=== PATIENT | female | born 1990 | race Caucasian/White ===

== ENCOUNTER 2017-07-25 03:51 | Emergency (ER) | payer OTHER ==
[~2017-07-25] VITALS: Wt 48.1 kg
[~2017-07-25 03:51] MED LIST: AMOXICILLIN500 MG PO; ANAPROX DS550 MG PO; BACTRIM DS 8001 TA1 PO; BENADRYL50 MG PO; CLARITIN10 MG PO; COGENTIN2 MG PO; COMPAZINE10 MG PO; MOTRIN600 MG PO; NKHM; PENICILLIN250 MG PO; PEPCID20 MG PO; PHENERGAN25 M1 PO; PRENATAL1 TA3 PO; PYRIDIUM200 MG PO; VICODIN 5/500 505 MG PO; ZITHROMAX Z PA250 MG PO; ZOFRAN ODT4 MG PO; ZOFRAN ODT4 MG SL
[2017-07-25 04:14] LABS: BILIRUBIN NEGATIVE (NEGATIVE); BLOOD NEGATIVE (NEGATIVE); CLARITY SL CLOUDY (CLEAR); COLOR YELLOW (YELLOW); GLUCOSE NEGATIVE (NEGATIVE); KETONE NEGATIVE (NEGATIVE); LEUKO ESTERASE 1+ (NEGATIVE); NITRITE NEGATIVE (NEGATIVE); SPECIFIC GRAVITY >= 1.030 (1.005-1.030); UROBILINOGEN 0.2 E.U./dl (0.2-1.0)
[2017-07-25 04:26] LABS: BACTERIA 1+; EPITHELIAL CELLS TNTC
[2017-07-25 04:45] LABS: BASO % 0.3 % (0.0-1.0); EOS # 0.1 10*3/uL (0.0-0.4); HEMATOCRIT 38.9 % (37.0-47.0); HEMOGLOBIN 13.3 g/dl (12.0-16.0); LYMPH # 1.3 10*3/uL (1.3-4.4); LYMPH % 9.8 % (27.0-41.0); MEAN CELL VOLUME 85.5 fl (81.0-99.0); MEAN CORPUSCULAR HGB 29.2 pg (27.0-31.0); MEAN CORPUSCULAR HGB CONC 34.2 g/dl (33.0-37.0); MEAN PLATELET VOLUME 9.4 fl (9.6-12.3); MONO # 0.6 10*3/uL (0.1-1.0); MONO % 4.7 % (3.0-9.0); NEUT # 11.3 10*3/uL (2.3-7.9); PLATELET COUNT AUTOMATED 282 10*3/uL (130-400); RED BLOOD COUNT 4.55 10*6/uL (4.10-5.10); RED CELL DISTRI WIDTH 12.9 % (0-14.5); WHITE BLOOD COUNT 13.4 10*3/uL (4.8-10.8)
[2017-07-25 05:08] LABS: ALBUMIN 3.8 gm/dl (3.1-4.5); ALKALINE PHOSPHATASE 53 U/L (45-117); BUN 17 mg/dl (7-24); CHLORIDE 106 mmol/L (98-107); CREATININE 0.97 mg/dL (0.55-1.02); LIPASE 134 U/L (73-393); POTASSIUM 3.8 mmol/L (3.5-5.1); SGOT/AST 16 IU/L (3-35); SGPT/ALT 18 U/L (12-78); SODIUM 139 mmol/L (136-145)
[2017-07-25] MEDS ORDERED: LOMOTIL 2.5-0.1 EACH PO (06:29)
[2017-07-25] MEDS ORDERED: ZOFRAN ODT4 MG SL (06:29)
== END 2017-07-25 06:44 | disposition home or self-care (01) ==
LOC: ED 03:51
PROVIDERS: Emergency Medicine Emergency Medical Services
DX: N39.0 Urinary tract infection, site not specified (principal); K52.9 Noninfective gastroenteritis and colitis, unspecified; F17.200 Nicotine dependence, unspecified, uncomplicated; Z88.8 Allergy status to other drugs, medicaments and biological substances

== ENCOUNTER 2018-11-11 02:39 | Emergency (ER) | payer SELFPAY ==
[~2018-11-11] VITALS: Wt 47.6 kg
[~2018-11-11 02:39] MED LIST changes: +LOMOTIL 2.5-0.1 EACH PO
[2018-11-11] MEDS ORDERED: KEFLEX500 M1 PO (04:01)
[2018-11-11] MEDS ORDERED: ULTRAM50 MG PO (04:02)
== END 2018-11-11 04:19 | disposition home or self-care (01) ==
LOC: ED 02:39
DX: L03.011 Cellulitis of right finger (principal); Z88.8 Allergy status to other drugs, medicaments and biological substances

== ENCOUNTER 2022-03-04 05:18 | Emergency (ER) | payer SELFPAY ==
[~2022-03-04] VITALS: Ht 162.5 cm; Wt 54.4 kg
[~2022-03-04 05:18] MED LIST changes: +KEFLEX500 M1 PO; +ULTRAM50 MG PO
== END 2022-03-04 08:55 | disposition home or self-care (01) ==
LOC: ED 05:18
DX: U07.1 COVID-19 (principal)

== ENCOUNTER 2022-06-22 17:24 | Emergency (ER) | payer SELFPAY ==
[~2022-06-22] VITALS: Ht 154.9 cm; Wt 49.9 kg
[2022-06-22] MEDS ORDERED: ONDANSETRON4 MG SL (19:12)
== END 2022-06-22 20:19 | disposition home or self-care (01) ==
LOC: ED 17:24
DX: J10.1 Influenza due to other identified influenza virus with other respiratory manifestations (principal); Z20.822 Contact with and (suspected) exposure to COVID-19; Z88.8 Allergy status to other drugs, medicaments and biological substances